=== PATIENT | male | born 1985 ===

== ENCOUNTER 2019-07-15 19:53 | Emergency (ER) | payer SELFPAY ==
--- NOTE | 2019-07-15 20:18 | Event Note ---
ED Screening Note Date of service: 07/15/19 Time: 20:14 ED Screening Note: Pt complains of anxiety attack and headache x today during his flight from [place] denies hx of anxiety attacks states he feels better now, but still feels sweaty with a headache states hx of recurrent headaches-took aspirin and ibuprofen today without relief +dizziness This initial assessment/diagnostic orders/clinical plan/treatment(s) is/are subject to change based on patients health status, clinical progression and re- assessment by fellow clinical providers in the ED. Further treatment and workup at subsequent clinical providers discretion. Patient/guardian urged not to elope from the ED as their condition may be serious if not clinically assessed and managed. Initial orders include: labs
--- NOTE | 2019-07-15 20:46 | XRay Report ---
CHEST 1 VIEW INDICATION / CLINICAL INFORMATION: chest pain/palpitations. COMPARISON: None available. FINDINGS: SUPPORT DEVICES: None. HEART / MEDIASTINUM: No significant abnormality. LUNGS / PLEURA: No significant pulmonary or pleural abnormality. No pneumothorax. ADDITIONAL FINDINGS: No significant additional findings. IMPRESSION: 1. No acute findings. Signer Name: Krzysztof Wheeler MD Signed: 07/15/2019 8:42 PM Workstation Name: [id number]
[2019-07-15 20:52] LABS: Hemoglobin 14.9 gm/dl (11.8-15.2); Mean Corpuscular HGB Conc 33 % (32-34); Mean Corpuscular Volume 85 fl (84-94); Platelet Count 167 K/mm3 (140-440); Red Blood Count 5.29 M/mm3 (3.65-5.03)
[2019-07-15 21:06] LABS: BUN/Creatinine Ratio 13; Blood Urea Nitrogen 12 mg/dL (9-20); Calcium 9.5 mg/dL (8.4-10.2); Hemolysis Index 10
[2019-07-15] MEDS ORDERED: KETOROLAC 30 MG/1 ML INJ IM ONE (21:43)
[2019-07-15] MEDS ORDERED: FAMOTIDINE 20 MG TAB PO ONE (21:43)
[2019-07-15] MEDS ORDERED: ONDANSETRON 4 MG ODT TAB PO ONE (21:43)
[2019-07-15] MEDS ORDERED: BUTALB/ACETAMINOPHEN/CAFFEINE TAB PO ONE (21:45)
--- NOTE | 2019-07-15 23:00 | Emergency Department Report ---
ED General Adult HPI - General Chief complaint: Headache Stated complaint: HEADACHE, ANXIOUSNESS Time Seen by Provider: 07/15/19 20:14 Source: patient Mode of arrival: Ambulatory Limitations: No Limitations - History of Present Illness Initial comments: Patient is a 34-year-old white male with a history of chronic migraine headaches who presents to the ED with complaint of acute exacerbation of his chronic migraine headaches with nausea, diaphoresis, chest tightness and upper and lower extremity shaking for the last 8 hours. Patient states that he has been flying from [facility] to [place] on his way to [facility], and always has anxiety whenever he travels. Patient states that he usually takes ibuprofen for his chronic migraine headaches but this time he took only one tablet before beginning his journey and that the medicine did not help. Patient denies chest pain, shortness of breath, dizziness, syncope, change in vision, neck pain, back pain, abdominal pain, palpitations, fever and chills or cough. MD Complaint: HEADACHE, ANXIETY -: Sudden, hour(s) (8) Location: head Radiation: non-radiation Severity scale (0 -10): 5 Quality: aching, sharp Consistency: constant Improves with: none Worsens with: none Associated Symptoms: denies other symptoms, headaches, loss of appetite, ma laise. denies: confusion, chest pain, cough, diaphoresis, fever/chills, nausea/vomiting, rash, seizure, shortness of breath, syncope, weakness Treatments Prior to Arrival: NSAID - Related Data Previous Rx's Medication Instructions Recorded Last Taken Type Butalb/Acetamin/Caff 50-325-40 1 - 2 tab PO Q6HR PRN #15 tab 07/15/19 Unknown Rx [Fioricet 50-325-40] Ketorolac [Toradol] 10 mg PO Q8H PRN #20 tablet 07/15/19 Unknown Rx Ondansetron [Zofran Odt] 4 mg PO Q4HR PRN #15 tab.rapdis 07/15/19 Unknown Rx hydrOXYzine PAMOATE [Vistaril] 50 mg PO Q6HR PRN #30 capsule 07/15/19 Unknown Rx Allergies Allergy/AdvReac Type Severity Reaction Status Date / Time No Known Allergies Allergy Unverified 07/15/19 22:09 ED Review of Systems ROS: Stated complaint: HEADACHE, ANXIOUSNESS Other details as noted in HPI Constitutional: denies: chills, fever Eyes: denies: eye pain, eye discharge, vision change ENT: denies: ear pain, throat pain Respiratory: denies: cough, shortness of breath, wheezing Cardiovascular: denies: chest pain, palpitations Endocrine: no symptoms reported Gastrointestinal: nausea. denies: abdominal pain, diarrhea Genitourinary: denies: urgency, dysuria Musculoskeletal: denies: back pain, joint swelling, arthralgia Skin: denies: rash, lesions Neurological: headache. denies: weakness, paresthesias Psychiatric: anxiety. denies: depression Hematological/Lymphatic: denies: easy bleeding, easy bruising ED Past Medical Hx - Past Medical History Previous Medical History?: Yes Hx Headaches / Migraines: Yes - Social History Smoking Status: Never Smoker Substance Use Type: None - Medications Home Medications: Home Medications Medication Instructions Recorded Confirmed Last Taken Type Butalb/Acetamin/Caff 50-325-40 1 - 2 tab PO Q6HR PRN #15 tab 07/15/19 Unknown Rx [Fioricet 50-325-40] Ketorolac [Toradol] 10 mg PO Q8H PRN #20 tablet 07/15/19 Unknown Rx Ondansetron [Zofran Odt] 4 mg PO Q4HR PRN #15 tab.rapdis 07/15/19 Unknown Rx hydrOXYzine PAMOATE [Vistaril] 50 mg PO Q6HR PRN #30 capsule 07/15/19 Unknown Rx ED Physical Exam - General Limitations: No Limitations General appearance: alert, in no apparent distress - Head Head exam: Present: atraumatic, normocephalic, normal inspection - Eye Eye exam: Present: normal appearance, PERRL, EOMI Pupils: Present: normal accommodation - ENT ENT exam: Present: normal exam, normal orophraynx, mucous membranes moist, TM's normal bilaterally, normal external ear exam - Neck Neck exam: Present: normal inspection, full ROM - Respiratory Respiratory exam: Present: normal lung sounds bilaterally. Absent: respiratory distress, wheezes, stridor, chest wall tenderness, accessory muscle use, decreased breath sounds - Cardiovascular Cardiovascular Exam: Present: regular rate, normal rhythm, normal heart sounds. Absent: systolic murmur, diastolic murmur, rubs, gallop - GI/Abdominal GI/Abdominal exam: Present: soft, normal bowel sounds. Absent: tenderness, guarding, organomegaly - Extremities Exam Extremities exam: Present: normal inspection, full ROM, normal capillary refill - Back Exam Back exam: Present: normal inspection, full ROM. Absent: CVA tenderness (L), muscle spasm, paraspinal tenderness, vertebral tenderness - Neurological Exam Neurological exam: Present: alert, oriented X3, CN II-XII intact, normal gait, reflexes normal - Psychiatric Psychiatric exam: Present: normal affect, normal mood, anxious - Skin Skin exam: Present: warm, dry, intact, normal color. Absent: rash ED Course Vital Signs 07/15/19 07/15/19 07/15/19 20:00 22:23 22:24 Temperature 97.4 F L Pulse Rate 76 Respiratory 18 18 16 Rate Blood Pressure 118/70 O2 Sat by Pulse 94 Oximetry ED Medical Decision Making - Lab Data Result diagrams: 07/15/19 20:21 07/15/19 20:21 - Radiology Data Radiology results: report reviewed, image reviewed Chest x-ray shows no acute cardiopulmonary abnormalities or pneumonitis. - Medical Decision Making This is a 34-year-old white male with history of anxiety and chronic migraine headaches who presented to the ED with acute exacerbation of his chronic migraine headaches and anxiety symptoms. In the ED, patient is alert and oriented 3 in destruction and distress but appears anxious. Chest x-ray shows no acute cardiopulmonary abnormalities or pneumonitis. Lab test results were r eviewed and are all nonactionable. Patient was treated for pain and on reevaluation, patient's headache resolved medications. Patient was discharged home on medication and advised to follow-up with his primary care physician intervention days for reevaluation. Patient was advised that he was free to fly to [place] and also back to [facility]. - Differential Diagnosis chronic migraine headache; anxiety; nausea; Critical care attestation.: If time is entered above; I have spent that time in minutes in the direct care of this critically ill patient, excluding procedure time. ED Disposition Clinical Impression: Anxiety as acute reaction to exceptional stress Headache, chronic migraine without aura Qualifiers: Status migrainosus presence: without status migrainosus Intractability: not intractable Qualified Code(s): G43.709 - Chronic migraine without aura, not intractable, without status migrainosus Disposition: TO HOME OR SELFCARE Is pt being admited?: No Does the pt Need Aspirin: No Condition: Stable Instructions: Migraine Headache (ED), Anxiety (ED) Additional Instructions: Take medications with food, drink plenty of fluids and follow-up with your primary care physician in 7-10 days for reevaluation. Return to the ED immedia tely if symptoms get worse. Prescriptions: Butalb/Acetamin/Caff 50-325-40 [Fioricet 50-325-40] 1 - 2 tab PO Q6HR PRN #15 tab PRN Reason: Headache Ketorolac [Toradol] 10 mg PO Q8H PRN #20 tablet PRN Reason: Pain hydrOXYzine PAMOATE [Vistaril] 50 mg PO Q6HR PRN #30 capsule PRN Reason: Anxiety Ondansetron [Zofran Odt] 4 mg PO Q4HR PRN #15 tab.rapdis PRN Reason: Nausea Referrals: PRIMARY CARE, [Referring] - 3-5 Days Time of Disposition: 22:57 Print Language: GREEK
[2019-07-16 04:09] VITALS: BP 118/74
== END 2019-07-15 23:20 | disposition home or self-care (01) ==
LOC: ED 19:53
DX: G43.709 Chronic migraine without aura, not intractable, without status migrainosus (principal); F41.1 Generalized anxiety disorder
CPT/HCPCS: 36415; 71046; 80048; 82962; 84484; 85027; 93005; 93010; 96372; 99284; J1885; Q0162